=== PATIENT | female | born 1960 | race Caucasian/White ===

== ENCOUNTER 2025-09-28 19:28 | Emergency (ER) | payer MEDICARE, MEDICAID ==
[2025-09-28] MEDS: Acetaminophen/HYDROcodone 325-10 MG Tab PO ONE (20:13)
== END 2025-09-29 00:11 | disposition home or self-care (01) ==
LOC: MW.ED 19:28
DX: S82.832A Other fracture of upper and lower end of left fibula, initial encounter for closed fracture (principal); S82.302A Unspecified fracture of lower end of left tibia, initial encounter for closed fracture; E78.00 Pure hypercholesterolemia, unspecified; J44.9 Chronic obstructive pulmonary disease, unspecified; E11.9 Type 2 diabetes mellitus without complications; E03.9 Hypothyroidism, unspecified; Z87.891 Personal history of nicotine dependence; Z88.0 Allergy status to penicillin; Z91.040 Latex allergy status; Z88.8 Allergy status to other drugs, medicaments and biological substances; Z91.018 Allergy to other foods; Z79.899 Other long term (current) drug therapy; W18.39XA Other fall on same level, initial encounter; Y93.89 Activity, other specified
CPT/HCPCS: 73590; 73610; 73630; 99283; A9270